=== PATIENT | male | born 1985 | race African-American/Black ===

== ENCOUNTER 2017-04-14 18:32 | Emergency (ER) | payer OTHER ==
[~2017-04-14] VITALS: Ht 182.9 cm; Wt 74.8 kg
--- NOTE | ~2017-04-14 | EKG ---
PATIENT: CYNTHIA OWUSU UNIT #: [id number] Ventricular Rate: 64 BPM Atrial Rate: 64 BPM P-R Interval: 134 ms QRS Duration: 90 ms Q-T Interval: 394 ms QTC Calculation(Bezet): 406 ms P [place]: 75 degrees Calculated R [place]: 89 degrees Calculated T [place]: 67 degrees Diagnosis Line: Normal sinus rhythm Diagnosis Line: Possible Left atrial enlargement Diagnosis Line: Left ventricular hypertrophy Diagnosis Line: Early repolarization Diagnosis Line: Abnormal ECG Diagnosis Line: No previous ECGs available Diagnosis Line: Confirmed by HEATHER HAYWARD MD ([id number]) on Diagnosis Line: 04/15/2017 2:01:33 PM INTERPRETING MD: YESY MALCOLM
[2017-04-14 19:57] LABS: BASOPHIL# 0.1 X10e3 (0-0.3); EOSINOPHIL# 0.3 X10e3 (0-0.7); EOSINOPHIL% 5.2 % (0.0-7.0); HEMATOCRIT 34.7 % (38.0-50.0); LYMPHOCYTE# 2.6 X10e3 (1.0-3.5); LYMPHOCYTE% 49.4 % (17.0-45.0); MEAN CELL VOLUME 77.2 FL (83-96); MEAN CORPUSCULAR HEMOGLOBIN 24.5 PG (28-34); MEAN CORPUSCULAR HGB CONC 31.7 g/dL (30-36); MEAN PLATELET VOLUME 7.5 FL (6.5-11.5); MONOCYTE# 0.4 X10e3 (0-1.0); MONOCYTE% 7.9 % (3.0-12.0); NEUTROPHIL# 1.9 X10e3 (1.5-7.1); NEUTROPHIL% 35.5 % (40-75); PLATELET COUNT 274 X10e3 (140-420); RED CELL DISTRIBUTION WIDTH 18.4 % (11.0-15.5); WHITE BLOOD COUNT 5.3 X10e3 (4.0-10.5)
[2017-04-14 19:58] LABS: DIFF IND YES
[2017-04-14 20:10] LABS: ANISOCYTOSIS MOD; PLATELET ESTIMATE NORMAL (NORMAL); POLYCHROMASIA MOD
[2017-04-14 20:11] LABS: ALBUMIN SERUM 4.4 g/dL (3.5-5.0); ALKALINE PHOSPHATASE 70 U/L (32-92); ALT (SGPT) 20 U/L (10-40); AST (SGOT) 24 U/L (10-42); BILIRUBIN,TOTAL 0.6 mg/dL (0.2-2.0); BLOOD UREA NITROGEN 14 mg/dL (9-23); CALCIUM SERUM 9.1 mg/dL (8.4-10.2); CARBON DIOXIDE 27 mmol/L (22-31); CHLORIDE 104 mmol/L (100-111); CREATININE SERUM 1.4 mg/dL (0.6-1.4); GLUCOSE FASTING 72 mg/dL (70-110); POTASSIUM 4.1 mmol/L (3.5-5.1); PROTEIN TOTAL SERUM 7.7 g/dL (6.0-8.3); SODIUM 137 mmol/L (135-145)
[2017-04-14 20:12] LABS: BILIRUBIN, DIRECT <0.1 mg/dL (0.0-0.2); BILIRUBIN,INDIRECT 0.5 mg/dL (0.0-0.9)
== END 2017-04-14 23:00 | disposition left against medical advice (07) ==
LOC: EDBD 18:32 → CED 18:32
DX: Z53.21 Procedure and treatment not carried out due to patient leaving prior to being seen by health care provider (principal)
CPT/HCPCS: 80048; 80076; 85025; 93005